=== PATIENT | male | born 1990 | race Caucasian/White ===

== ENCOUNTER 2023-12-30 08:14 | Emergency (ER) | payer OTHER ==
[2023-12-30 08:20] VITALS: BP 107/65; PULSE 78; RESP 18; TEMP 98; BMI 26.4
== END 2023-12-30 08:51 | disposition home or self-care (01) ==
LOC: JERFT 08:14
DX: H10.9 Unspecified conjunctivitis (principal)
CPT/HCPCS: 99283-25

== ENCOUNTER 2024-01-02 18:24 | Emergency (ER) | payer OTHER ==
[2024-01-02 18:30] VITALS: BP 115/74; PULSE 77; RESP 18; TEMP 983.7; BMI 26.4
[2024-01-02] MEDS ORDERED: ERYTHROMYCIN 0.5% OPHTHALMIC OINTMENT 3.5 GM TUBE ONE (19:05)
[2024-01-02] MEDS: ERYTHROMYCIN 0.5% OPHTHALMIC OINTMENT 3.5 GM TUBE OU STA (19:05)
== END 2024-01-02 19:19 | disposition home or self-care (01) ==
LOC: JERFT 18:24
DX: H10.33 Unspecified acute conjunctivitis, bilateral (principal)
CPT/HCPCS: 99283-25